=== PATIENT | female | born 1955 | race Caucasian/White ===

== ENCOUNTER 2020-01-03 20:08 | Emergency (ER) | payer MEDICAID ==
[~2020-01-03] VITALS: Ht 152.4 cm; Wt 99.8 kg
[2020-01-03 20:35] VITALS: BP_SYST 156
[2020-01-03] MEDS ORDERED: HYDR12.55 PO (20:47)
[2020-01-03] MEDS ORDERED: NOR10 PO (20:47)
[2020-01-03] MEDS ORDERED: ASPIRIN 81 MG TAB.CHEW PO ONE (22:45)
[2020-01-03] MEDS ORDERED: MORPHINE 4 MG/ML INJ. SYRINGE IM ONE (22:45)
[2020-01-03 23:26] LABS: BASOPHILS # (AUTO) 0.1 K/uL (0.0-0.2); BASOPHILS % (AUTO) 0.5 % (0.0-2.0); EOSINOPHILS # (AUTO) 0.3 K/uL (0.0-0.4); EOSINOPHILS % (AUTO) 2.5 % (0.0-4.0); HEMATOCRIT 43.6 % (36-48); HEMOGLOBIN 14.7 g/dL (12.0-16.0); LYMPHOCYTES % (AUTO) 28.6 % (20.5-51.5); MEAN CORPUSCULAR HEMOGLOBIN 30 pg (27-31); MEAN CORPUSCULAR HGB CONC 34 % (32-36); MEAN CORPUSCULAR VOLUME 90 fL (79.0-98.0); MONOCYTES # (AUTO) 0.7 K/uL (0.0-1.0); MONOCYTES % (AUTO) 6.8 % (1.7-9.3); NEUTROPHILS # (AUTO) 6.5 K/uL (1.8-7.7); NEUTROPHILS % (AUTO) 61.6 % (40.0-70.0); PLATELET COUNT (AUTO) 419 K/uL (130-430); RED BLOOD CELL COUNT(AUTO) 4.84 MIL/uL (4.2-6.2); RED CELL DISTRIBUTION WIDTH 14.2 % (9.0-15.0); WHITE BLOOD COUNT (AUTO) 10.5 K/uL (4.8-10.8)
[2020-01-03 23:37] LABS: CALCIUM 8.8 mg/dL (8.4-11.0); CREATININE 0.57 mg/dL (0.55-1.30); POTASSIUM 3.9 mmol/L (3.5-5.1)
[2020-01-03 23:44] LABS: ALBUMIN 3.7 g/dL (3.4-4.8); TOTAL BILIRUBIN 0.3 mg/dL (0.0-1.0)
[2020-01-03 23:49] LABS: PROTHROMBIN TIME 9.8 SECS (9.5-12.5)
[2020-01-04] MEDS ORDERED: ACETAMINOPHEN 500 MG TABLET PO ONE (00:15)
[2020-01-04 02:15] VITALS: BP_SYST 136
== END 2020-01-04 02:15 | disposition home or self-care (01) ==
LOC: SED 20:08
DX: S33.5XXA Sprain of ligaments of lumbar spine, initial encounter (principal); G44.209 Tension-type headache, unspecified, not intractable; F41.0 Panic disorder [episodic paroxysmal anxiety]; R07.9 Chest pain, unspecified; X50.9XXA Other and unspecified overexertion or strenuous movements or postures, initial encounter; Y93.89 Activity, other specified; Y92.89 Other specified places as the place of occurrence of the external cause; Y99.8 Other external cause status
CPT/HCPCS: 36415; 70450; 71045; 80053; 82550; 83880; 84484; 85025; 85610; 93005; 96372; 99285; J2270

== ENCOUNTER 2021-07-23 17:56 | Emergency (ER) | payer MEDICARE, MEDICAID ==
[~2021-07-23] VITALS: Ht 149.9 cm; Wt 99.8 kg
[~2021-07-23 17:56] MED LIST: HYDR12.55 PO; NOR10 PO
[2021-07-23 18:05] VITALS: BP_SYST 153
--- NOTE | 2021-07-23 18:15 | NUR ---
Pt to bed 6 for evaluation.
[2021-07-23] MEDS ORDERED: PRO40 PO (18:18)
[2021-07-23] MEDS ORDERED: LOSA50TA3 PO (18:18)
[2021-07-23] MEDS ORDERED: NOR10 PO (18:18)
[2021-07-23] MEDS ORDERED: SIMV20TA2 PO (18:18)
[2021-07-23] MEDS ORDERED: METO25TA3 PO (18:18)
--- NOTE | 2021-07-23 18:18 | NUR ---
PER DR ODELL, NO CODE STROKE.
--- NOTE | 2021-07-23 18:23 | NUR ---
PT COMES TO ER FOR SUDDEN DIZZINESS 2.5HRS [employer], WAS RECLINING ON A CHURCH BAG AND WHEN SHE ATTEMPTED TO GET UP, SHE FELT DIZZY. DENIES ANY CP OR SOB. NO CHANGES IN VISION. PT AMBULATED TO ROOM, STEADY GAIT. DENIES ANY WEAKNESS OR CHANGES IN SPEECH. NO FACIAL DROOP OR SLURRED SPEECH NOTED. PT WITH DRY MOUTH SO SLOW TO RESPOND. WATER GIVEN , DENIES ANY RECCENT ETOH. PT [id number], IN NAD. RESP EVEN AND UNLABORED,ON RA @98%. NEURO CHECK INTACT, VSS. BP 139/70, HR-78 CURRENTLY. DENIES ANY PAIN. IV SL TO LT AC, BLOOD DRAWN AND SENT.
[2021-07-23] MEDS ORDERED: MECLIZINE HCL 25 MG TABLET (ANITVERT) PO ONE (18:30)
--- NOTE | 2021-07-23 18:31 | NUR ---
EKG IN PROGRESS
[2021-07-23 18:54] LABS: CALCIUM 9.1 mg/dL (8.4-11.0); CREATININE 0.98 mg/dL (0.55-1.30); POTASSIUM 3.9 mmol/L (3.5-5.1)
[2021-07-23 18:59] LABS: BASOPHILS % (AUTO) 0.5 % (0.0-2.0); EOSINOPHILS # (AUTO) 0.2 K/uL (0.0-0.4); EOSINOPHILS % (AUTO) 2.5 % (0.0-4.0); HEMATOCRIT 41.5 % (36-48); HEMOGLOBIN 14.2 g/dL (12.0-16.0); LYMPHOCYTES # (AUTO) 1.8 K/uL (1.0-5.5); LYMPHOCYTES % (AUTO) 20.9 % (20.5-51.5); MEAN CORPUSCULAR HEMOGLOBIN 31 pg (27-31); MEAN CORPUSCULAR HGB CONC 34 % (32-36); MEAN CORPUSCULAR VOLUME 89 fL (79.0-98.0); MONOCYTES # (AUTO) 0.7 K/uL (0.0-1.0); MONOCYTES % (AUTO) 7.5 % (1.7-9.3); NEUTROPHILS % (AUTO) 68.6 % (40.0-70.0); PLATELET COUNT (AUTO) 392 K/uL (130-430); RED BLOOD CELL COUNT(AUTO) 4.65 MIL/uL (4.2-6.2); RED CELL DISTRIBUTION WIDTH 14.8 % (9.0-15.0); WHITE BLOOD COUNT (AUTO) 8.8 K/uL (4.8-10.8)
[2021-07-23 19:10] LABS: ALBUMIN 3.7 g/dL (3.4-4.8); TOTAL BILIRUBIN 0.4 mg/dL (0.0-1.0)
[2021-07-23 20:26] LABS: PROTHROMBIN TIME 10.4 SECS (9.5-12.5)
[2021-07-23] MEDS ORDERED: NACL 0.9% 1,000 ML IV ONE (20:45)
[2021-07-23] MEDS ORDERED: MECL-160 PO (22:18)
[2021-07-23] MEDS ORDERED: ONDA-8 TL (22:18)
--- NOTE | 2021-07-23 22:28 | NUR ---
Patient given written and verbal discharge instructions and verbalizes understanding. ER MD discussed with patient the results and treatment provided. Patient in stable condition. ID arm band removed. IV catheter removed intact and dressing applied, no active bleeding. Rx of zofran and meclizine given. Patient educated on pain management and to follow up with PMD. Pain Scale 2. Opportunity for questions provided and answered. Medication side effect fact sheet provided.
[2021-07-23 22:29] VITALS: BP_SYST 139
[2021-07-23 22:55] LABS: BILIRUBIN,URINE NEGATIVE (NEGATIVE); BLOOD, URINE NEGATIVE (NEGATIVE); CLARITY/URINE CLEAR (CLEAR); COLOR,URINE YELLOW (YELLOW); GLUCOSE,URINE NEGATIVE (NEGATIVE); KETONES,URINE NEGATIVE (NEGATIVE); LEUKOCYTE ESTERASE ,URINE NEGATIVE (NEGATIVE); NITRITE, URINE NEGATIVE (NEGATIVE); PH,URINE 5.5 (5.0-8.0); PROTEIN URINE NEGATIVE (NEGATIVE); UROBILINOGEN,URINE 0.2 (0.2-1.0)
== END 2021-07-23 22:28 | disposition home or self-care (01) ==
LOC: SED 17:56
DX: H81.10 Benign paroxysmal vertigo, unspecified ear (principal); I15.9 Secondary hypertension, unspecified; Z79.899 Other long term (current) drug therapy
CPT/HCPCS: 36415; 70450; 76376; 80053; 81003; 84484; 85025; 85610; 85730; 93005; 96360; 99285; J7030; J8597

== ENCOUNTER 2022-08-31 12:02 | Emergency (ER) | payer MEDICARE, MEDICAID ==
[~2022-08-31] VITALS: Ht 152.4 cm; Wt 92.1 kg
[~2022-08-31 12:02] MED LIST changes: +LOSA50TA3 PO; +MECL-160 PO; +METO25TA3 PO; +ONDA-8 TL; +PRO40 PO; +SIMV-343 PO
[2022-08-31 12:33] VITALS: BP_SYST 170
[2022-08-31 13:18] LABS: BILIRUBIN,URINE NEGATIVE (NEGATIVE); BLOOD, URINE NEGATIVE (NEGATIVE); CLARITY/URINE CLEAR (CLEAR); COLOR,URINE YELLOW (YELLOW); GLUCOSE,URINE NEGATIVE (NEGATIVE); KETONES,URINE NEGATIVE (NEGATIVE); LEUKOCYTE ESTERASE ,URINE 1+ (NEGATIVE); NITRITE, URINE NEGATIVE (NEGATIVE); PH,URINE 5.5 (5.0-8.0); PROTEIN URINE NEGATIVE (NEGATIVE); UROBILINOGEN,URINE 0.2 (0.2-1.0)
[2022-08-31 13:25] LABS: BACTERIA,URINE RARE /HPF (None Seen); MUCUS,URINE 1+ /LPF (None Seen); RBC,URINE 0-3 /HPF (0-3)
[2022-08-31] MEDS ORDERED: MAG-AL HYDROX/SIMETH 30 ML UDC PO ONE (13:30)
[2022-08-31 13:59] LABS: BASOPHILS % (AUTO) 0.4 % (0.0-2.0); EOSINOPHILS # (AUTO) 0.1 K/uL (0.0-0.4); EOSINOPHILS % (AUTO) 1.8 % (0.0-4.0); HEMATOCRIT 41.9 % (36-48); HEMOGLOBIN 14.3 g/dL (12.0-16.0); LYMPHOCYTES # (AUTO) 1.9 K/uL (1.0-5.5); MEAN CORPUSCULAR HEMOGLOBIN 30 pg (27-31); MEAN CORPUSCULAR HGB CONC 34 % (32-36); MEAN CORPUSCULAR VOLUME 88 fL (79.0-98.0); MONOCYTES # (AUTO) 0.5 K/uL (0.0-1.0); MONOCYTES % (AUTO) 5.6 % (1.7-9.3); NEUTROPHILS # (AUTO) 5.6 K/uL (1.8-7.7); NEUTROPHILS % (AUTO) 69.2 % (40.0-70.0); PLATELET COUNT (AUTO) 381 K/uL (130-430); RED BLOOD CELL COUNT(AUTO) 4.77 MIL/uL (4.2-6.2); RED CELL DISTRIBUTION WIDTH 14.3 % (9.0-15.0); WHITE BLOOD COUNT (AUTO) 8.1 K/uL (4.8-10.8)
[2022-08-31 14:15] LABS: ANION GAP 9 (5-15); CALCIUM 9.1 mg/dL (8.4-11.0); CHLORIDE 105 mmol/L (98-107); CREATININE 0.71 mg/dL (0.55-1.30); GLUCOSE 99 mg/dL (70-99); UREA NITROGEN, BLOOD 17 mg/dL (8-21)
[2022-08-31 14:18] LABS: GFR AFRICAN AMERICAN 106 mL/min (>90)
[2022-08-31 14:25] LABS: ALANINE AMINOTRANSFERASE 23 U/L (12-78); ALBUMIN 3.9 g/dL (3.4-4.8); ASPARTATE AMINOTRANSFERASE 19 U/L (10-37); LIPASE 52 U/L (73-393); TOTAL BILIRUBIN 0.3 mg/dL (0.0-1.0)
[2022-08-31 15:24] VITALS: BP_SYST 170
== END 2022-08-31 15:25 | disposition home or self-care (01) ==
LOC: SED 12:02
DX: K29.70 Gastritis, unspecified, without bleeding (principal); M79.10 Myalgia, unspecified site; M54.50 Low back pain, unspecified; R11.0 Nausea; I10 Essential (primary) hypertension; F17.200 Nicotine dependence, unspecified, uncomplicated; Z79.899 Other long term (current) drug therapy
CPT/HCPCS: 36415; 80053; 81000; 83690; 84484; 85025; 87086; 99283

== ENCOUNTER 2022-11-10 09:23 | Emergency (ER) | payer MEDICARE, MEDICAID ==
[~2022-11-10] VITALS: Ht 149.9 cm; Wt 93.4 kg
[2022-11-10 09:30] VITALS: BP_SYST 155
[2022-11-10 10:34] LABS: BASOPHILS % (AUTO) 0.6 % (0.0-2.0); EOSINOPHILS # (AUTO) 0.2 K/uL (0.0-0.4); EOSINOPHILS % (AUTO) 2.1 % (0.0-4.0); HEMATOCRIT 41.6 % (36-48); HEMOGLOBIN 14.2 g/dL (12.0-16.0); LYMPHOCYTES # (AUTO) 1.9 K/uL (1.0-5.5); LYMPHOCYTES % (AUTO) 24.3 % (20.5-51.5); MEAN CORPUSCULAR HEMOGLOBIN 30 pg (27-31); MEAN CORPUSCULAR HGB CONC 34 % (32-36); MEAN CORPUSCULAR VOLUME 89 fL (79.0-98.0); MONOCYTES # (AUTO) 0.4 K/uL (0.0-1.0); MONOCYTES % (AUTO) 4.9 % (1.7-9.3); NEUTROPHILS # (AUTO) 5.2 K/uL (1.8-7.7); NEUTROPHILS % (AUTO) 68.1 % (40.0-70.0); PLATELET COUNT (AUTO) 389 K/uL (130-430); RED BLOOD CELL COUNT(AUTO) 4.66 MIL/uL (4.2-6.2); RED CELL DISTRIBUTION WIDTH 14.6 % (9.0-15.0); WHITE BLOOD COUNT (AUTO) 7.6 K/uL (4.8-10.8)
[2022-11-10 10:45] LABS: ANION GAP 10 (5-15); CALCIUM 9.3 mg/dL (8.4-11.0); CHLORIDE 104 mmol/L (98-107); CREATININE 0.49 mg/dL (0.55-1.30); GLUCOSE 112 mg/dL (70-99); UREA NITROGEN, BLOOD 17 mg/dL (8-21)
[2022-11-10 10:53] LABS: ALANINE AMINOTRANSFERASE 17 U/L (12-78); ALBUMIN 3.8 g/dL (3.4-4.8); ASPARTATE AMINOTRANSFERASE 14 U/L (10-37); TOTAL BILIRUBIN 0.5 mg/dL (0.0-1.0)
[2022-11-10 10:55] LABS: GFR AFRICAN AMERICAN 162 mL/min (>90)
[2022-11-10 12:09] VITALS: BP_SYST 155
== END 2022-11-10 12:09 | disposition home or self-care (01) ==
LOC: SED 09:23
DX: J32.9 Chronic sinusitis, unspecified (principal); M79.601 Pain in right arm; M79.602 Pain in left arm; R42 Dizziness and giddiness; I10 Essential (primary) hypertension; Z79.899 Other long term (current) drug therapy
CPT/HCPCS: 36415; 70450-TC; 71045; 76376; 80053; 84484; 85025; 93005; 99285

== ENCOUNTER 2024-07-29 14:37 | Emergency (ER) | payer MEDICARE, MEDICAID ==
[~2024-07-29] VITALS: Ht 149.9 cm; Wt 97.5 kg
[~2024-07-29 14:37] MED LIST changes: +LOSA-413 PO; -LOSA50TA3 PO; -MECL-160 PO; +MECL-292 PO
[2024-07-29 15:00] VITALS: BP_SYST 140; PULSE 69; RESP 18; TEMP 97.8; O2SAT 97
[2024-07-29] MEDS: ONDANSETRON HCL 4 MG/2 ML VIAL IVP ONE (15:30)
[2024-07-29] MEDS: NACL 0.9% 1,000 ML IV ONE (15:57)
[2024-07-29] MEDS: MECLIZINE HCL 25 MG TABLET (ANITVERT) PO ONE (15:57)
[2024-07-29 16:06] LABS: BASOPHILS % (AUTO) 0.5 % (0.0-2.0); EOSINOPHILS # (AUTO) 0.3 K/uL (0.0-0.4); HEMATOCRIT 40.5 % (36-48); HEMOGLOBIN 13.8 g/dL (12.0-16.0); LYMPHOCYTES # (AUTO) 1.5 K/uL (1.0-5.5); MEAN CORPUSCULAR HEMOGLOBIN 30 pg (27-31); MEAN CORPUSCULAR HGB CONC 34 % (32-36); MEAN CORPUSCULAR VOLUME 89 fL (79.0-98.0); MONOCYTES # (AUTO) 0.4 K/uL (0.0-1.0); MONOCYTES % (AUTO) 5.2 % (1.7-9.3); NEUTROPHILS # (AUTO) 5.1 K/uL (1.8-7.7); NEUTROPHILS % (AUTO) 69.3 % (40.0-70.0); PLATELET COUNT (AUTO) 357 K/uL (130-430); RED BLOOD CELL COUNT(AUTO) 4.57 MIL/uL (4.2-6.2); RED CELL DISTRIBUTION WIDTH 14.1 % (9.0-15.0); WHITE BLOOD COUNT (AUTO) 7.4 K/uL (4.8-10.8)
[2024-07-29 16:08] LABS: ANION GAP 12 (5-15); CALCIUM 8.6 mg/dL (8.4-11.0); CARBON DIOXIDE 24 mmol/L (23-29); CHLORIDE 102 mmol/L (98-107); CREATININE 0.69 mg/dL (0.55-1.30); GFR AFRICAN AMERICAN 108 mL/min (>90); GLUCOSE 106 mg/dL (74-106); POTASSIUM 3.5 mmol/L (3.5-5.1); SODIUM SERUM 138 mmol/L (136-145); UREA NITROGEN, BLOOD 17 mg/dL (8-21)
[2024-07-29 16:09] LABS: GFR NON AFRICAN-AMERICAN 90 mL/min (>90)
[2024-07-29] MEDS ORDERED: MECL-261 PO (17:28)
[2024-07-29] MEDS ORDERED: ONDA-8 TL (17:29)
[2024-07-29 17:49] VITALS: BP_SYST 120; PULSE 78; RESP 18; TEMP 97.8; O2SAT 95
== END 2024-07-29 17:35 | disposition home or self-care (01) ==
LOC: SED 14:37
DX: R42 Dizziness and giddiness (principal); R11.2 Nausea with vomiting, unspecified; E11.9 Type 2 diabetes mellitus without complications; E78.5 Hyperlipidemia, unspecified; I10 Essential (primary) hypertension; Z98.890 Other specified postprocedural states; Z79.899 Other long term (current) drug therapy
CPT/HCPCS: 99284; 70450; 80048; 85025; 84484; 36415; 93005; J7030; J8597